=== PATIENT | female | born 1975 | race African-American/Black ===

== ENCOUNTER 2018-09-15 09:24 | Emergency (ER) | payer SELFPAY ==
[~2018-09-15] VITALS: Wt 160.0 kg
[2018-09-15 09:27] VITALS: BP 160/80; PULSE 85; RESP 18
[2018-09-15] MEDS ORDERED: PROM5SYR2 PO (10:12)
[2018-09-15] MEDS ORDERED: PRED20TA PO (10:12)
[2018-09-15] MEDS ORDERED: predniSONE 20 MG TAB PO ONE (10:30)
--- NOTE | 2018-09-15 10:31 | ERD ---
ER Documentation Chief Complaint Chief Complaint cough x 3 days HPI 42-year-old female presenting with cough times 3 days. Patient has a dry cough. She has a history of bronchitis. Patient is using her inhaler at home. She is allergic to dextromethorphan and guaifenesin. Allergic to Tessalon. Social history denies. Denies fever. Denies pleuritic chest pain. Denies hemoptysis. ROS All systems reviewed and are negative except as per history of present illness. Medications Home Meds Active Scripts Prednisone* (Prednisone*) 20 Mg Tab, 40 MG PO DAILY for 4 Days, TAB Prov:DAYANARA GARZA PA-C 09/15/18 Promethazine HCl/Codeine (Prometh-Codein 6.25-10 mg/5 ml) 5 Ml Syrup, 10 ML PO BID, #240 ML Prov:DAYANARA GARZA PA-C 09/15/18 Allergies Allergies: Coded Allergies: guaifenesin (Verified Allergy, Unknown, hives, 09/15/18) Uncoded Allergies: PROMETHEZINE (Allergy, Unknown, hives, 09/15/18) PMhx/Soc History of Surgery: No Anesthesia Reaction: No Hx Neurological Disorder: No Hx Respiratory Disorders: No Hx Cardiac Disorders: No Hx Psychiatric Problems: No Hx Miscellaneous Medical Probl: No Hx Alcohol Use: No Hx Substance Use: No Hx Tobacco Use: No Smoking Status: Never smoker FmHx Family History: No diabetes, No coronary disease, No other Physical Exam Vitals Vital Signs Date Temp Pulse Resp B/P (MAP) Pulse Ox O2 O2 Flow FiO2 Time Delivery Rate 09/15/18 98.1 85 18 160/80 99 09:27 (106) Physical Exam GENERAL: The patient is well-appearing, well-nourished, in no acute distress HEENT: Atraumatic. Conjunctivae are pink. Pupils equal, round, and reactive to light. There is no scleral icterus. Tympanic membranes clear bilaterally. Oropharynx clear. NECK: C-spine is soft and supple. There is no meningismus. There is no cervical lymphadenopathy. CHEST: Clear to auscultation bilaterally. There are no rales, wheezes or rhonc hi. HEART: Regular rate and rhythm. No murmurs, clicks, rubs or gallops. Results 24 hrs Current Medications Medications Dose Sig/Masood Start Time Status Last (Trade) Ordered Route PRN Stop Time Admin Dose Reason Admin Prednisone 60 mg ONCE ONCE 09/15/18 09/15/18 (Prednisone) PO 10:30 10:17 09/15/18 10:31 Procedures/MDM Course: Prednisone given ED. MDM: 42-year-old female presenting with cough. Patient's breath sounds are stable and exam is non-concerning. I have low suspicion for pneumonia. Patient likely has viral cough and will be treated with supportive medications. Patient is recommended to return to ER symptoms change or worsen. All questions answered at discharge Departure Diagnosis: Primary Impression: Cough Condition: Stable Patient Instructions: Cough, Chronic, Uncertain Cause, (Adult) Referrals: [facility] YOU HAVE RECEIVED A MEDICAL SCREENING EXAM AND THE RESULTS INDICATE THAT YOU DO NOT HAVE A CONDITION THAT REQUIRES URGENT TREATMENT IN THE EMERGENCY DEPARTMENT. FURTHER EVALUATION AND TREATMENT OF YOUR CONDITION CAN WAIT UNTIL YOU ARE SEEN IN YOUR DOCTORS OFFICE WITHIN THE NEXT 1-2 DAYS. IT IS YOUR RESPONSIBILITY TO MAKE AN APPOINTMENT FOR FOLOW-UP CARE. IF YOU HAVE A PRIMARY DOCTOR --you should call your primary doctor and schedule an appointment IF YOU DO NOT HAVE A PRIMARY DOCTOR YOU CAN CALL OUR PHYSICIAN REFERRAL HOTLINE AT IF YOU CAN NOT AFFORD TO SEE A PHYSICIAN YOU CAN CHOSE FROM THE FOLLOWING [facility] [address] [facility]. [facility] [address] [facility] [facility] [address] [facility] [facility] [address] [facility]. [facility] [address] [facility]. [facility]. [address] Additional Instructions: FOLLOW UP WITH YOUR PRIMARY CARE PHYSICIAN TOMORROW.Return to this facility if you are not improving as expected. DAYANARA GARZA PA-C Sep 15, 2018 10:31
== END 2018-09-15 11:09 | disposition home or self-care (01) ==
LOC: FTE 09:24
DX: R05 Cough (principal)
CPT/HCPCS: 99283; J7512